=== PATIENT | female | born 1965 | race Caucasian/White ===

== ENCOUNTER → 2021-02-10 | Outpatient (CLI) | payer OTHER ==
[~2021-02-10] MED LIST: ALBUTEROL INH INH; AMLODIPINE BESYL5 MG PO; ANORO ELLIPTA1 EACH INH; ASPIR-LOW81 MG PO; ASPIRIN EC81 MG PO; AUGMENTIN 875-1 EACH PO; BEVESPI AEROS10.7 GM INH; BROMPHENIR-PSE118 ML PO; BUSPAR 10MG10 MG PO; COLACE 100MG C100 MG PO; DITROPAN 5 MG TA5 MG PO; ESTRADIOL TOP; FLONASE 0.05% N16 GM; FLONASE ALLER15.8 ML; FLUVOXAMINE PO; FOLIC ACID 1 MG1 MG PO; FOLIC ACID1 MG PO; IBUPROFEN600 MG PO; IBUPROFEN800 MG PO; KLONOPIN1 MG PO; LATUDA20 MG PO; LUVOX TAB 100100 MG PO; METOPROLOL SUCC25 MG PO; NAPROXEN 250 M250 MG PO; NAPROXEN250 MG PO; NEURONTIN 400400 MG PO; NEURONTIN800 MG PO; NITROGLYCERIN0.4 MG SL; NITROSTAT 0.40.4 MG SL; NORCO 5-325 TA1 EACH PO; NORVASC 5 MG TAB5 MG PO; OXCARBAZEPINE300 MG PO; PAXIL10 MG PO; PREGABALIN25 MG PO; PREGABALIN50 MG PO; PROGESTERONE100 MG PO; STIOLTO RESPIMAT4 GM INH; SYMBICORT 160-1 INHA INH; TYLENOL 500 MG500 MG PO; TYLENOL EXTRA500 MG PO; VENTOLIN HFA 66.7 GM INH; VITAMIN D31000 UNIT PO; VITAMIN D32000 UNI1 PO; VRAYLAR PO; VRAYLAR3 MG PO
[2021-02-10 15:07] LABS: HEMOGLOBIN 15.7 gm/dl (12.3-15.3); RED BLOOD COUNT 4.8 M/UL (4.00-5.10); WHITE BLOOD COUNT 6.8 K/UL (4.5-11.0)
[2021-02-10 15:25] LABS: BUN/CREATININE RATIO 10 (0-10)
== END ==
LOC: LAB 13:16
PROVIDERS: Internal Medicine Interventional Cardiology
DX: I20.0 Unstable angina (principal); E78.00 Pure hypercholesterolemia, unspecified
CPT/HCPCS: 36415; 80048; 85025; 85610; 85730; 93005

== ENCOUNTER → 2021-03-01 | Outpatient (CLI) | payer OTHER ==
[2021-03-01 10:19] LABS: RED BLOOD COUNT 4.59 M/UL (4.00-5.10); WHITE BLOOD COUNT 6.5 K/UL (4.5-11.0)
[2021-03-01 10:35] LABS: BUN/CREATININE RATIO 6 (0-10)
== END ==
LOC: CATH 09:22
PROVIDERS: Internal Medicine Interventional Cardiology
DX: I20.0 Unstable angina (principal); J44.9 Chronic obstructive pulmonary disease, unspecified; E78.00 Pure hypercholesterolemia, unspecified; I10 Essential (primary) hypertension; F41.9 Anxiety disorder, unspecified; F31.9 Bipolar disorder, unspecified; F17.210 Nicotine dependence, cigarettes, uncomplicated; Z88.8 Allergy status to other drugs, medicaments and biological substances; Z79.899 Other long term (current) drug therapy
CPT/HCPCS: 80048; 85025; 85610; 85730; 93005; 99152; C1769; J1644; J2250; J3010; J7030; Q9967

== ENCOUNTER → 2021-11-03 | Outpatient (CLI) | payer OTHER | LOC: HEART 5 10-28 13:30 | DX: I20.9 Angina pectoris, unspecified (principal); I95.9 Hypotension, unspecified; R07.89 Other chest pain; I08.1 Rheumatic disorders of both mitral and tricuspid valves | CPT/HCPCS: 93306 ==